=== PATIENT | male | born 1930 | race Two or more races ===

== ENCOUNTER 2020-06-22 13:32 | Inpatient (IN) | payer MEDICARE, MEDICAID ==
[~2020-06-22] VITALS: Ht 165.1 cm; Wt 76.6 kg
[2020-06-22] MEDS ORDERED: cefTRIAXone 1GM/50ML D5W 50 ML IV ONE (13:45)
[2020-06-22] MEDS ORDERED: AZITHROMYCIN 500MG/ 250ML 250 ML IV ONE (13:45)
[2020-06-22] MEDS ORDERED: DexAMETHasone SOD PHOS 10MG/1ML VIAL INJ IV ONE (13:45)
[2020-06-22 14:30] LABS: Basophils # (auto) 0.1 10 ^3/uL (0-0.2); Basophils % (auto) 0.6 % (0.0-2.0); Eosinophils # (auto) 0 10 ^3/uL (0-0.8); Hematocrit 39.8 % (41.0-53.0); Hemoglobin 13.9 g/dL (13.5-17.5); Lymphocytes # (auto) 0.5 10 ^3/uL (0.4-5.4); Lymphocytes % (auto) 4.8 % (10.0-50.0); Mean Corpuscular Hemoglobin 33.7 pg (28.0-32.0); Mean Corpuscular Volume 96.3 fL (80.0-100.0); Monocytes # (auto) 0.2 10 ^3/uL (0-1.3); Monocytes % (auto) 2.3 % (0.0-12.0); Neutrophils # (auto) 9.1 10 ^3/uL (1.6-8.6); Neutrophils % (auto) 92.3 % (37.0-80.0); Nucleated Red Blood Cells % 0.1 %; Platelet Count (auto) 179 10^3/uL (140-450); Red Blood Cells 4.13 10^6/uL (4.5-5.90); Red Cell Distribution Width 14.3 % (11.8-14.3); White Blood Cell 9.9 10^3/uL (4.4-10.8)
[2020-06-22 14:47] LABS: Albumin 2.6 g/dL (3.4-5.0); Calcium 7.7 mg/dL (8.5-10.1); Potassium 4.8 mmol/L (3.5-5.1)
[2020-06-22 14:50] LABS: INR 1.13 (0.9-1.15); Partial Thromboplastin Time 30.5 sec (23.0-31.2)
[2020-06-22 14:55] LABS: BUN/Creatinine Ratio 20.9; Bilirubin, Total 1.2 mg/dL (0.2-1.0); CRP High Sensitivity 16.3 mg/dL (< 0.3)
[2020-06-22] MEDS ORDERED: MORPHINE SULF INJ 2 MG/ML SYRINGE 1ML IV PRN ×2 (16:15)
[2020-06-22] MEDS ORDERED: DOCUSATE CALCIUM 240 MG CAP PO PRN (16:15)
[2020-06-22] MEDS ORDERED: ACETAMINOPHEN 500 MG TAB PO PRN ×2 (16:15)
[2020-06-22] MEDS ORDERED: NITROGLYCERIN 0.4 MG SL TAB SL PRN (16:15)
[2020-06-22] MEDS: SODIUM CHLORIDE 0.9% 1,000 ML IV SCH (16:15)
[2020-06-22] MEDS ORDERED: VANCOMYCIN PER PHARMACY 0 MG IV SCH (16:15)
[2020-06-22] MEDS ORDERED: DEXTROSE (50%) 50ML SYRG IV PRN (16:15)
[2020-06-22] MEDS ORDERED: LABETALOL HCL 5 MG/ML 4ML SYRINGE IV PRN (16:15)
[2020-06-22] MEDS: ALBUTEROL SULF HFA 90MCG INH 200DOSE IN PRN (17:30)
[2020-06-22] MEDS: BUDESONIDE (INHALATION) 180 MCG IH IN SCH (17:30)
[2020-06-22] MEDS: PIPERACILLIN-TAZOB 3.375GM 100 ML IV SCH (17:59)
[2020-06-22 18:17] VITALS: BP 141/81
[2020-06-22 18:59] LABS: Lactic Acid w/Reflex 2.1 mmol/L (0.4-2.0)
[2020-06-22] MEDS: VANCOMYCIN 1GM/250ML 250 ML IV SCH (20:55)
[2020-06-22] MEDS: ENOXAPARIN SOD 40 MG/0.4 ML SYRINGE SC SCH (20:57)
[2020-06-22] MEDS: ACCU-CHEK COMFORT CURVE STRIP VI SCH (20:58)
[2020-06-22] MEDS: InsuLIN REG 1unit/0.01ml Soln (100units/ml) SC SCH (22:14)
[2020-06-23] VITALS: BP 147/83
[2020-06-23] MEDS: PIPERACILLIN-TAZOB 3.375GM 100 ML IV SCH ×3 (00:27→11:19)
[2020-06-23] MEDS: InsuLIN REG 1unit/0.01ml Soln (100units/ml) SC SCH ×5 (02:00→22:00)
[2020-06-23] MEDS: ACCU-CHEK COMFORT CURVE STRIP VI SCH ×5 (02:02→23:23)
[2020-06-23 06:29] LABS: Basophils # (auto) 0 10 ^3/uL (0-0.2); Basophils % (auto) 0.1 % (0.0-2.0); Eosinophils # (auto) 0 10 ^3/uL (0-0.8); Hematocrit 41.6 % (41.0-53.0); Hemoglobin 14.2 g/dL (13.5-17.5); Lymphocytes # (auto) 0.5 10 ^3/uL (0.4-5.4); Lymphocytes % (auto) 6.2 % (10.0-50.0); Mean Corpuscular Hemoglobin 33.2 pg (28.0-32.0); Mean Corpuscular Hgb Conc. 34.1 g/dL (32.0-36.0); Mean Corpuscular Volume 97.2 fL (80.0-100.0); Monocytes # (auto) 0.2 10 ^3/uL (0-1.3); Monocytes % (auto) 3.2 % (0.0-12.0); Neutrophils # (auto) 6.6 10 ^3/uL (1.6-8.6); Neutrophils % (auto) 90.5 % (37.0-80.0); Nucleated Red Blood Cells % 0.1 %; Platelet Count (auto) 219 10^3/uL (140-450); Red Blood Cells 4.28 10^6/uL (4.5-5.90); Red Cell Distribution Width 14.7 % (11.8-14.3); White Blood Cell 7.3 10^3/uL (4.4-10.8)
[2020-06-23 06:45] LABS: Albumin 2.6 g/dL (3.4-5.0); Calcium 7.5 mg/dL (8.5-10.1); Potassium 4.7 mmol/L (3.5-5.1)
[2020-06-23 06:50] LABS: BUN/Creatinine Ratio 24.8
[2020-06-23] MEDS: LORazepam 0.5 MG TAB PO PRN (06:55)
[2020-06-23] MEDS: BUDESONIDE (INHALATION) 180 MCG IH IN SCH ×2 (07:27→22:26)
[2020-06-23] MEDS: ALBUTEROL SULF HFA 90MCG INH 200DOSE IN PRN ×2 (07:27→22:26)
[2020-06-23] MEDS: SODIUM CHLORIDE 0.9% 1,000 ML IV SCH (07:35)
[2020-06-23 08:00] VITALS: BP 147/76
[2020-06-23] MEDS ORDERED: CHOLECALCIFEROL (VITD3) 2,000 UNIT CAP/TAB PO SCH (10:00)
[2020-06-23] MEDS: ZINC SULFATE 220mg CAP or TAB PO SCH (11:17)
[2020-06-23] MEDS: ASCORBIC ACID 1,000 MG TAB PO SCH (11:18)
[2020-06-23] MEDS: PANTOPRAZOLE 40 MG TAB PO SCH (11:18)
[2020-06-23] MEDS: ENOXAPARIN SOD 40 MG/0.4 ML SYRINGE SC SCH ×2 (11:18→23:22)
[2020-06-23] MEDS ORDERED: REMDESIVIR PER PHARMACY 0 ML IV SCH (12:15)
[2020-06-23] MEDS ORDERED: DexAMETHasone SOD PHOS 10MG/1ML VIAL INJ IV ONE (12:15)
[2020-06-23] MEDS ORDERED: diphenhdrAMINE HCL 50 MG/1 ML VL IV PRN (12:15)
[2020-06-23] MEDS ORDERED: FUROSEMIDE 40 MG/4 ML VIAL IV ONE (12:15)
[2020-06-23] MEDS: DOXYCYCLINE 100MG/250ML 250 ML IV SCH (13:19)
[2020-06-23] MEDS ORDERED: diphenhdrAMINE HCL 50 MG/1 ML VL IV ONE (14:30)
[2020-06-23] MEDS ORDERED: ERGOCALCIFEROL 50,000 UNIT(1.25MG) CAP PO SCH (14:30)
[2020-06-23] MEDS ORDERED: ACETAMINOPHEN 650 mg PER 20.3 mL UD PO ONE (14:30)
[2020-06-23] MEDS ORDERED: guaiFENesin-DM 100/10mg/5ml SYR PO PRN (14:30)
[2020-06-23] MEDS: TOCILIZUMAB 400 MG in SODIUM CHL 0.9% 80 ML IV SCH (15:31)
[2020-06-23 16:00] VITALS: BP 147/85
[2020-06-23] MEDS ORDERED: REMDESIVIR 200 MG in NS 210ml LOADING DOSE ADULT IV ONE (17:00)
[2020-06-23] MEDS: Glucerna Carbsteady SHAKE Vanilla 8oz PO SCH (17:50)
[2020-06-23] MEDS: VANCOMYCIN 1GM/250ML 250 ML IV SCH (20:38)
[2020-06-24] VITALS: BP 166/79
[2020-06-24] MEDS: DOXYCYCLINE 100MG/250ML 250 ML IV SCH ×2 (00:03→12:22)
[2020-06-24 03:10] VITALS: BP 160/82
[2020-06-24 03:30] VITALS: BP 163/96
[2020-06-24 04:45] VITALS: BP 153/92
[2020-06-24] MEDS: BUDESONIDE (INHALATION) 180 MCG IH IN SCH ×2 (06:33→18:56)
[2020-06-24] MEDS: ALBUTEROL SULF HFA 90MCG INH 200DOSE IN PRN ×2 (06:33→21:20)
[2020-06-24 06:47] LABS: Basophils # (auto) 0 10 ^3/uL (0-0.2); Eosinophils # (auto) 0 10 ^3/uL (0-0.8); Hematocrit 37.9 % (41.0-53.0); Monocytes # (auto) 0.3 10 ^3/uL (0-1.3); Monocytes % (auto) 4.1 % (0.0-12.0); Nucleated Red Blood Cells % 0.1 %; Red Blood Cells 3.93 10^6/uL (4.5-5.90); White Blood Cell 7.5 10^3/uL (4.4-10.8)
[2020-06-24 06:49] LABS: Basophils % (auto) 0.2 % (0.0-2.0); Hemoglobin 13.3 g/dL (13.5-17.5); Lymphocytes # (auto) 0.5 10 ^3/uL (0.4-5.4); Lymphocytes % (auto) 6.9 % (10.0-50.0); Mean Corpuscular Hemoglobin 33.9 pg (28.0-32.0); Mean Corpuscular Hgb Conc. 35.2 g/dL (32.0-36.0); Mean Corpuscular Volume 96.3 fL (80.0-100.0); Neutrophils # (auto) 6.6 10 ^3/uL (1.6-8.6); Neutrophils % (auto) 88.8 % (37.0-80.0); Platelet Count (auto) 242 10^3/uL (140-450); Red Cell Distribution Width 14.3 % (11.8-14.3)
[2020-06-24 07:08] LABS: Potassium 4.2 mmol/L (3.5-5.1)
[2020-06-24 07:17] LABS: Albumin 2.6 g/dL (3.4-5.0); BUN/Creatinine Ratio 32.1; Bilirubin, Total 0.8 mg/dL (0.2-1.0); Calcium 7.8 mg/dL (8.5-10.1)
[2020-06-24 07:36] VITALS: BP 163/89
[2020-06-24] MEDS: Glucerna Carbsteady SHAKE Vanilla 8oz PO SCH ×3 (08:00→18:00)
[2020-06-24] MEDS: DexAMETHasone SOD PHOS 10MG/1ML VIAL INJ IV SCH (09:29)
[2020-06-24] MEDS: ZINC SULFATE 220mg CAP or TAB PO SCH (09:35)
[2020-06-24] MEDS: ASCORBIC ACID 1,000 MG TAB PO SCH (09:35)
[2020-06-24] MEDS: PANTOPRAZOLE 40 MG TAB PO SCH (09:35)
[2020-06-24] MEDS: ENOXAPARIN SOD 40 MG/0.4 ML SYRINGE SC SCH ×2 (09:36→22:03)
[2020-06-24] MEDS ORDERED: diphenhdrAMINE HCL 50 MG/1 ML VL IV ONE (10:00)
[2020-06-24] MEDS ORDERED: ACETAMINOPHEN 650 mg PER 20.3 mL UD PO ONE (10:00)
[2020-06-24] MEDS: TOCILIZUMAB 400 MG in SODIUM CHL 0.9% 80 ML IV SCH (10:30)
[2020-06-24] MEDS: InsuLIN REG 1unit/0.01ml Soln (100units/ml) SC SCH ×2 (10:39→22:21)
[2020-06-24] MEDS: ACCU-CHEK COMFORT CURVE STRIP VI SCH ×2 (10:39→22:03)
[2020-06-24] MEDS: FUROSEMIDE 40 MG/4 ML VIAL IV SCH (11:58)
[2020-06-24] MEDS: REMDESIVIR 100mg 100 MG in SODIUM CHL 0.9% 230 ML IV SCH (14:35)
[2020-06-24 16:00] VITALS: BP 129/70
[2020-06-24] MEDS: Glucerna Carbsteady SHAKE Stawberry 8oz PO SCH (18:14)
[2020-06-25] VITALS: BP 154/79
[2020-06-25] MEDS: DOXYCYCLINE 100MG/250ML 250 ML IV SCH ×2 (00:08→12:15)
[2020-06-25] MEDS: LORazepam 0.5 MG TAB PO PRN (00:27)
[2020-06-25 08:00] VITALS: BP 156/78
[2020-06-25] MEDS: Glucerna Carbsteady SHAKE Vanilla 8oz PO SCH (08:00)
[2020-06-25] MEDS: Glucerna Carbsteady SHAKE Stawberry 8oz PO SCH ×3 (08:00→18:00)
[2020-06-25] MEDS: PANTOPRAZOLE 40 MG TAB PO SCH (09:52)
[2020-06-25] MEDS: DexAMETHasone SOD PHOS 10MG/1ML VIAL INJ IV SCH (09:52)
[2020-06-25] MEDS: FUROSEMIDE 40 MG/4 ML VIAL IV SCH (09:52)
[2020-06-25] MEDS: ZINC SULFATE 220mg CAP or TAB PO SCH (09:52)
[2020-06-25] MEDS: ASCORBIC ACID 1,000 MG TAB PO SCH (09:52)
[2020-06-25] MEDS: ENOXAPARIN SOD 40 MG/0.4 ML SYRINGE SC SCH ×2 (09:52→21:39)
[2020-06-25] MEDS: InsuLIN REG 1unit/0.01ml Soln (100units/ml) SC SCH ×2 (10:00→21:44)
[2020-06-25] MEDS: ACCU-CHEK COMFORT CURVE STRIP VI SCH ×2 (10:00→21:39)
[2020-06-25 10:20] LABS: Basophils # (auto) 0 10 ^3/uL (0-0.2); Basophils % (auto) 0.3 % (0.0-2.0); Eosinophils # (auto) 0 10 ^3/uL (0-0.8); Eosinophils % (auto) 0.1 % (0.0-7.0); Hematocrit 40.6 % (41.0-53.0); Hemoglobin 13.9 g/dL (13.5-17.5); Lymphocytes # (auto) 0.5 10 ^3/uL (0.4-5.4); Lymphocytes % (auto) 7.9 % (10.0-50.0); Mean Corpuscular Hemoglobin 33.3 pg (28.0-32.0); Mean Corpuscular Hgb Conc. 34.2 g/dL (32.0-36.0); Mean Corpuscular Volume 97.2 fL (80.0-100.0); Monocytes # (auto) 0.3 10 ^3/uL (0-1.3); Monocytes % (auto) 5.1 % (0.0-12.0); Neutrophils # (auto) 5.6 10 ^3/uL (1.6-8.6); Neutrophils % (auto) 86.6 % (37.0-80.0); Nucleated Red Blood Cells % 0.3 %; Platelet Count (auto) 248 10^3/uL (140-450); Red Blood Cells 4.18 10^6/uL (4.5-5.90); Red Cell Distribution Width 14.1 % (11.8-14.3); White Blood Cell 6.5 10^3/uL (4.4-10.8)
[2020-06-25 10:39] LABS: Albumin 2.5 g/dL (3.4-5.0); Potassium 4.3 mmol/L (3.5-5.1)
[2020-06-25 10:44] LABS: BUN/Creatinine Ratio 36.5; Bilirubin, Total 1.1 mg/dL (0.2-1.0); Total Protein 6.7 g/dL (6.4-8.2)
[2020-06-25] MEDS: REMDESIVIR 100mg 100 MG in SODIUM CHL 0.9% 230 ML IV SCH (14:55)
[2020-06-25 16:09] VITALS: BP 157/99
[2020-06-25] MEDS: BUDESONIDE (INHALATION) 180 MCG IH IN SCH ×2 (21:09→22:00)
[2020-06-26] VITALS: BP 160/94
[2020-06-26] MEDS: DOXYCYCLINE 100MG/250ML 250 ML IV SCH ×2 (01:19→11:59)
[2020-06-26] MEDS: LORazepam 0.5 MG TAB PO PRN (01:43)
[2020-06-26] MEDS: BUDESONIDE (INHALATION) 180 MCG IH IN SCH ×2 (06:27→19:44)
[2020-06-26 06:45] LABS: Potassium 3.9 mmol/L (3.5-5.1)
[2020-06-26 06:50] LABS: Albumin 2.7 g/dL (3.4-5.0); Bilirubin, Total 1.2 mg/dL (0.2-1.0); Calcium 7.9 mg/dL (8.5-10.1); Total Protein 6.8 g/dL (6.4-8.2)
[2020-06-26 07:33] VITALS: BP 142/83
[2020-06-26] MEDS: Glucerna Carbsteady SHAKE Stawberry 8oz PO SCH ×3 (08:00→18:00)
[2020-06-26] MEDS: ACCU-CHEK COMFORT CURVE STRIP VI SCH ×2 (10:00→21:55)
[2020-06-26] MEDS: InsuLIN REG 1unit/0.01ml Soln (100units/ml) SC SCH ×2 (10:00→21:56)
[2020-06-26] MEDS ORDERED: amLODIPine BESYLATE 5 MG TAB PO ONE (10:30)
[2020-06-26] MEDS: PANTOPRAZOLE 40 MG TAB PO SCH (11:03)
[2020-06-26] MEDS: ZINC SULFATE 220mg CAP or TAB PO SCH (11:03)
[2020-06-26] MEDS: ASCORBIC ACID 1,000 MG TAB PO SCH (11:04)
[2020-06-26] MEDS: DexAMETHasone SOD PHOS 10MG/1ML VIAL INJ IV SCH (11:04)
[2020-06-26] MEDS: FUROSEMIDE 40 MG/4 ML VIAL IV SCH (11:06)
[2020-06-26] MEDS: LOSARTAN POTASSIUM 25 MG TAB PO SCH (11:07)
[2020-06-26] MEDS: ENOXAPARIN SOD 40 MG/0.4 ML SYRINGE SC SCH ×2 (11:08→21:55)
[2020-06-26] MEDS ORDERED: LORazepam 0.5 MG TAB PO PRN (13:45)
[2020-06-26 15:35] VITALS: BP_SYST 120; BP_SYST 139; BP_DIAS 77; BP_DIAS 80
[2020-06-26] MEDS: REMDESIVIR 100mg 100 MG in SODIUM CHL 0.9% 230 ML IV SCH (15:37)
[2020-06-26] MEDS: ALBUTEROL SULF HFA 90MCG INH 200DOSE IN PRN (19:44)
[2020-06-26] MEDS: QUEtiapine FUMARATE 25 MG TAB PO SCH (21:54)
[2020-06-27] VITALS: BP 146/83
[2020-06-27] MEDS: DOXYCYCLINE 100MG/250ML 250 ML IV SCH ×3 (00:02→23:46)
[2020-06-27] MEDS: BUDESONIDE (INHALATION) 180 MCG IH IN SCH ×2 (06:32→19:50)
[2020-06-27 08:00] VITALS: BP 129/79
[2020-06-27] MEDS: Glucerna Carbsteady SHAKE Stawberry 8oz PO SCH ×3 (08:00→18:09)
[2020-06-27 08:39] LABS: Albumin 2.9 g/dL (3.4-5.0); Calcium 8.5 mg/dL (8.5-10.1); Potassium 4.1 mmol/L (3.5-5.1)
[2020-06-27 08:44] LABS: BUN/Creatinine Ratio 40.2; Bilirubin, Total 1.7 mg/dL (0.2-1.0); Total Protein 7.3 g/dL (6.4-8.2)
[2020-06-27] MEDS: InsuLIN REG 1unit/0.01ml Soln (100units/ml) SC SCH ×2 (10:00→21:15)
[2020-06-27] MEDS: FUROSEMIDE 40 MG/4 ML VIAL IV SCH (10:09)
[2020-06-27] MEDS: DexAMETHasone SOD PHOS 10MG/1ML VIAL INJ IV SCH (10:10)
[2020-06-27] MEDS: ENOXAPARIN SOD 40 MG/0.4 ML SYRINGE SC SCH ×2 (10:10→21:15)
[2020-06-27] MEDS: ZINC SULFATE 220mg CAP or TAB PO SCH (10:10)
[2020-06-27] MEDS: ASCORBIC ACID 1,000 MG TAB PO SCH (10:10)
[2020-06-27] MEDS: LOSARTAN POTASSIUM 25 MG TAB PO SCH (10:11)
[2020-06-27] MEDS: PANTOPRAZOLE 40 MG TAB PO SCH (10:12)
[2020-06-27] MEDS: amLODIPine BESYLATE 5 MG TAB PO SCH (10:13)
[2020-06-27] MEDS: ACCU-CHEK COMFORT CURVE STRIP VI SCH ×2 (10:13→21:15)
[2020-06-27 13:00] VITALS: BP 105/79
[2020-06-27] MEDS: REMDESIVIR 100mg 100 MG in SODIUM CHL 0.9% 230 ML IV SCH (14:37)
[2020-06-27 16:00] VITALS: BP 115/64
[2020-06-27] MEDS: ALBUTEROL SULF HFA 90MCG INH 200DOSE IN PRN (19:50)
[2020-06-27] MEDS: QUEtiapine FUMARATE 25 MG TAB PO SCH (21:13)
[2020-06-27 22:00] VITALS: BP 129/78
[2020-06-28] VITALS (7 sets, daily range): BP systolic 103–129; BP diastolic 65–81
[2020-06-28] MEDS: BUDESONIDE (INHALATION) 180 MCG IH IN SCH ×2 (09:48→19:24)
[2020-06-28] MEDS: InsuLIN REG 1unit/0.01ml Soln (100units/ml) SC SCH ×2 (10:00→22:44)
[2020-06-28] MEDS: DexAMETHasone SOD PHOS 10MG/1ML VIAL INJ IV SCH (10:32)
[2020-06-28] MEDS: Glucerna Carbsteady SHAKE Stawberry 8oz PO SCH ×3 (10:32→18:54)
[2020-06-28] MEDS: ZINC SULFATE 220mg CAP or TAB PO SCH (10:33)
[2020-06-28] MEDS: FUROSEMIDE 40 MG/4 ML VIAL IV SCH (10:33)
[2020-06-28] MEDS: PANTOPRAZOLE 40 MG TAB PO SCH (10:33)
[2020-06-28] MEDS: amLODIPine BESYLATE 5 MG TAB PO SCH (10:33)
[2020-06-28] MEDS: LOSARTAN POTASSIUM 25 MG TAB PO SCH (10:33)
[2020-06-28] MEDS: ACCU-CHEK COMFORT CURVE STRIP VI SCH ×2 (10:34→22:06)
[2020-06-28] MEDS: ENOXAPARIN SOD 40 MG/0.4 ML SYRINGE SC SCH ×2 (10:34→22:06)
[2020-06-28] MEDS: ASCORBIC ACID 1,000 MG TAB PO SCH (10:34)
[2020-06-28] MEDS: DOXYCYCLINE 100MG/250ML 250 ML IV SCH (13:38)
[2020-06-28] MEDS: ALBUTEROL SULF HFA 90MCG INH 200DOSE IN PRN (19:24)
[2020-06-28] MEDS: QUEtiapine FUMARATE 25 MG TAB PO SCH (22:06)
[2020-06-29] MEDS: DOXYCYCLINE 100MG/250ML 250 ML IV SCH (00:23)
[2020-06-29 05:24] VITALS: BP 104/61
[2020-06-29] MEDS: BUDESONIDE (INHALATION) 180 MCG IH IN SCH ×2 (06:13→19:30)
[2020-06-29 06:33] LABS: Hematocrit 45.3 % (41.0-53.0); Hemoglobin 16.1 g/dL (13.5-17.5); Mean Corpuscular Hemoglobin 33.9 pg (28.0-32.0); Mean Corpuscular Hgb Conc. 35.5 g/dL (32.0-36.0); Mean Corpuscular Volume 95.5 fL (80.0-100.0); Platelet Count (auto) 259 10^3/uL (140-450); Red Blood Cells 4.74 10^6/uL (4.5-5.90); Red Cell Distribution Width 14.6 % (11.8-14.3); White Blood Cell 6.6 10^3/uL (4.4-10.8)
[2020-06-29 06:54] LABS: Chloride 109 mmol/L (98-107); Potassium 3.6 mmol/L (3.5-5.1); Sodium 142 mmol/L (136-145)
[2020-06-29 06:57] LABS: Basophils % (manual) 0 (0.0-2.0); Blast Cells 0; Metamyelocytes % 0; Myelocytes % 0; Promyelocytes % 0; Reactive Lymphocytes 0
[2020-06-29 06:58] LABS: Anion Gap 9 (5-15); BUN/Creatinine Ratio 47.4; Blood Urea Nitrogen 54 mg/dL (7-18); Calcium 8.2 mg/dL (8.5-10.1); Carbon Dioxide 24 mmol/L (21-32); GFR African American 78 mL/min; GFR Non-African American 64 mL/min; Glucose 96 mg/dL (74-106)
[2020-06-29] MEDS: Glucerna Carbsteady SHAKE Stawberry 8oz PO SCH ×3 (08:00→18:00)
[2020-06-29] MEDS: DexAMETHasone SOD PHOS 10MG/1ML VIAL INJ IV SCH (08:54)
[2020-06-29] MEDS: FUROSEMIDE 40 MG/4 ML VIAL IV SCH (08:54)
[2020-06-29] MEDS: ENOXAPARIN SOD 40 MG/0.4 ML SYRINGE SC SCH (08:54)
[2020-06-29] MEDS: ZINC SULFATE 220mg CAP or TAB PO SCH (08:54)
[2020-06-29] MEDS: PANTOPRAZOLE 40 MG TAB PO SCH (08:55)
[2020-06-29] MEDS: amLODIPine BESYLATE 5 MG TAB PO SCH (08:55)
[2020-06-29] MEDS: LOSARTAN POTASSIUM 25 MG TAB PO SCH (08:56)
[2020-06-29 09:00] VITALS: BP 116/66
[2020-06-29] MEDS: ASCORBIC ACID 1,000 MG TAB PO SCH (09:03)
[2020-06-29] MEDS ORDERED: POTASSIUM CHL 10 Meq TABLET PO ONE (09:15)
[2020-06-29] MEDS: ACCU-CHEK COMFORT CURVE STRIP VI SCH (10:00)
[2020-06-29] MEDS: InsuLIN REG 1unit/0.01ml Soln (100units/ml) SC SCH (10:00)
[2020-06-29 10:32] LABS: Band Neutrophils % (manual) 4; Eosinophils % (manual) 2 (0-7); Lymphocytes % (manual) 5 (10.0-50.0); Monocytes % (manual) 2 (0-12)
[2020-06-29] MEDS ORDERED: DOXYCYCLINE 100 MG TAB/CAP PO SCH (12:14)
[2020-06-29 12:54] VITALS: BP 85/42
[2020-06-29 14:56] VITALS: BP 116/66
[2020-06-29 17:00] VITALS: BP 100/63
[2020-06-29] MEDS: ALBUTEROL SULF HFA 90MCG INH 200DOSE IN PRN (19:30)
== END 2020-06-29 20:28 | disposition hospice, home (50) | DRG 177 ==
LOC: ER 13:32 → TELE 13:33 → TELE-WESTW 18:41
PROVIDERS: ADMIT Family Medicine; ATTEND Internal Medicine
PROC: 05HB33Z Insertion of Infusion Device into Right Basilic Vein, Percutaneous Approach (ICD-10-PCS; 2020-06-23)
PROC: B54MZZA Ultrasonography of Right Upper Extremity Veins, Guidance (ICD-10-PCS; 2020-06-23)
PROC: XW033H5 Introduction of Tocilizumab into Peripheral Vein, Percutaneous Approach, New Technology Group 5 (ICD-10-PCS; 2020-06-23)
PROC: XW13325 Transfusion of Convalescent Plasma (Nonautologous) into Peripheral Vein, Percutaneous Approach, New Technology Group 5 (ICD-10-PCS; principal; 2020-06-24)
PROC: XW033E5 Introduction of Remdesivir Anti-infective into Peripheral Vein, Percutaneous Approach, New Technology Group 5 (ICD-10-PCS; 2020-06-24)
DX: U07.1 COVID-19 (principal); J96.01 Acute respiratory failure with hypoxia; J12.82 Pneumonia due to coronavirus disease 2019; N17.0 Acute kidney failure with tubular necrosis; E43 Unspecified severe protein-calorie malnutrition; G93.1 Anoxic brain damage, not elsewhere classified; E86.0 Dehydration; R73.9 Hyperglycemia, unspecified; E55.9 Vitamin D deficiency, unspecified; I10 Essential (primary) hypertension; Z68.28 Body mass index [BMI] 28.0-28.9, adult
CPT/HCPCS: 36415; 36600; 71045; 80048; 80053; 82306; 82728; 82805; 82962; 83036; 83605; 83615; 83735; 83880; 84443; 84484; 85007; 85025; 85027; 85379; 85610; 85730; 86141; 86850; 86900; 86901; 87426; 93005; 94640; 96365; 96366; 96368; 96375; 99291; G0378; J0696; J1100; J1815; J2543; J3490